=== PATIENT | female | born 1935 | race Caucasian/White ===

== ENCOUNTER 2019-10-12 15:55 | Emergency (ER) | payer MEDICARE, SELFPAY ==
[2019-10-12 16:16] VITALS: BP 178/87; PULSE 83; RESP 16; TEMP 37.2; O2SAT 97; BMI 18.7
[2019-10-12] MEDS: TET,DIPH,PERTUSS(ACELL),VAC/PF 0.5 ML SYRINGE IM (17:15)
--- NOTE | 2019-10-12 17:25 | PC.NURSE ---
Mara is a 84 year old woman that has a laceration on her left hand. She reports no pain at the site of the injury. She is not on any anticoagulants. Her hand is bleeding slowly but has guaze and pressure to control the mild (1tsp) of blood flow. She is not showing any signs of distress.
--- NOTE | 2019-10-12 18:04 | DI.RAD.S_ITS ---
PROCEDURE: XR HAND LT MIN 3V INDICATIONS: wood chipping accident TECHNIQUE: 3 views of the hand(s) acquired. COMPARISON: None. FINDINGS: Bones: No fractures or dislocations. Carpal bones are normally aligned. No suspicious bony lesions. Moderate degenerative change. Lateral deviation of the 5th digit MCP joint. Soft tissues: No suspicious soft tissue calcifications. IMPRESSION: Lateral deviation of the 5th digit MCP joint. No fracture identified. Dictated by: Ja Mann M.D. on 10/12/2019 at 18:17 Approved by: Ja Mann M.D. on 10/12/2019 at 18:19
--- NOTE | 2019-10-12 18:29 | ED.WOUNDLAC ---
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 She does not know when her last tetanus was. It occurred through gloves, and she kept chopping wood. Then she tried to butterfly at home, but elected to come to the emergency department today because she was having trouble doing by herself. She states that she has full range of motion of all her fingers. Related Data Home Medications Medication Instructions Recorded Confirmed multivitamin [Multiple Vitamins] 1 tab PO QDAY #0 02/17/16 11/21/18 [ASTRAGALUS] 2 cap PO PRN PRN #0 01/29/17 11/21/18 Josh seeds See Rx Instructions .ROUTE .COMPLEX 11/21/18 11/21/18 Citracal/Vitamin D3 630/500 IU 2 tab PO BID 11/21/18 11/21/18 Flaxseed Oil 1400 mg 1 cap PO DAILY 11/21/18 11/21/18 Turmeric 1,000 mg 1 cap PO BID 11/21/18 11/21/18 salmon oil 1,000 mg-omega-3 fatty 1 cap PO BID cap 11/21/18 11/21/18 acids 210 mg capsule vit C-vit C-uysxrb-rgox ox-lutein 1 cap PO BID cap 11/21/18 11/21/18 226 mg-200 unit-5 mg-0.8 mg capsule Previous Rx's Medication Instructions Recorded pneumoc 13-maycol conj-dip cr(PF) 0.5 0.5 ml IM X1 #1 ea 11/21/18 mL IM syringe Allergies Allergy/AdvReac Type Severity Reaction Status Date / Time No Known Drug Allergies Allergy Unverified 07/22/19 12:51 Review of Systems <SERA Mora - Last Filed: 10/12/19 20:22> Review of Systems Narrative: GENERAL: Denies chills, fatigue, malaise, fever, sweats. HEENT: Denies sinus pain, ear pain, sore throat, difficulty swallowing, dizziness. RESPIRATORY: Denies dyspnea, cough, wheezing, hemoptysis, sputum. CARDIOVASCULAR: Denies chest pain, palpitations, orthopnea, edema, GASTROINTESTINAL: Denies nausea, vomiting, abdominal pain, diarrhea, constipation, melena. : Denies dysuria, frequency, incontinence, hematuria, urinary retention. MUSCULOSKELETAL: See HPI SKIN: See HPI NEUROLOGIC: Denies weakness, headache, numbness, change in speech, confusion, seizures, incoordination. PSYCHIATRIC: No concerning psychosocial issues. 12 point review of systems is negative except for those stated above Patient History <SERA Mora - Last Filed: 10/12/19 20:22> Medical History Right hip pain (Acute) Surgical History History of tonsillectomy Family History Father Heart attack Mother No problems noted. Social History Smoking Status: Former smoker Tobacco: How many years used: 1 second hand exposure: No alcohol intake: current (a glass of wine once or twice a year) substance use type: does not use Smoking Status: Former smoker alcohol intake frequency: holidays/special occasions only Substance Use Type: does not use Exam <SERA Mora - Last Filed: 10/12/19 20:22> Narrative Exam Narrative: GENERAL: Elderly female no acute distress HEAD: Atraumatic. Normocephalic. No temporal or scalp tenderness. EYES: Pupils equal round and reactive. Extraocular motions intact. No scleral icterus. No injection or drainage. ENT: Nose without bleeding, purulent drainage or septal hematoma. . Airway patent. NECK: Trachea midline. No JVD or lymphadenopathy. Supple, nontender, no meningeal signs. CARDIOVASCULAR: Regular rate and rhythm RESPIRATORY: No cough. No increased respiratory effort. No accessory muscle use EXTREMITIES: See skin exam. Full range of motion for patient noted left hand. Able to flex and extend all fingers against resistance. Positive left radial pulse. Capillary refill less than 2 seconds all fingers left hand. Arthritis noted on left hand NEURO: AOx3. SKIN: 2 cm laceration in between left index finger and left thumb. No obvious foreign body. No obvious muscle or tendon involvement. 0.5 cm flap noted on palmar aspect of laceration. Initial Vital Signs Initial Vital Signs: Vital Signs Temperature 99.0 F 10/12/19 16:16 Pulse Rate 83 10/12/19 16:16 Respiratory Rate 16 10/12/19 16:16 Blood Pressure 178/87 H 10/12/19 16:16 Pulse Oximetry 97 10/12/19 16:16 <Manjeet Dalton DO - Last Filed: 10/13/19 05:37> Initial Vital Signs Initial Vital Signs: Vital Signs Temperature 99.0 F 10/12/19 16:16 Pulse Rate 83 10/12/19 16:16 Respiratory Rate 16 10/12/19 16:16 Blood Pressure 178/87 H 10/12/19 16:16 Pulse Oximetry 97 10/12/19 16:16 Procedures <SERA Mora - Last Filed: 10/12/19 20:22> Laceration Repair Laceration 1: Site: hand Side (If applicable): left Size (cm): 2 Description: irregular Depth: simple, single layer Local Anesthetic: lidocaine 1% and with bicarb Amount of anesthesia used (mL): 5 Pre-repair: wound explored, irrigated extensively (With saline, Iodine) and deep structures intact Skin layer closed with: nylon Size (cm): 3-0 Number of sutures: 5 Technique: simple, interrupted Scores <SERA Mora - Last Filed: 10/12/19 20:22> GCS Yahaira coma scale eye opening: Spontaneous [place]a coma scale verbal response: Orientated [place] coma scale motor response: Obey commands Yahaira coma scale total score: 15 Course <SERA Mora - Last Filed: 10/12/19 20:22> Orders Ordered: Discontinued Medications Bacitracin (Bacitracin) 1 applic TOP NOW ONE Stop: 10/12/19 19:13 Last Admin: 10/12/19 19:28 Dose: 1 applic Documented by: FABIÁN Diphtheria/Tetanus/Acell Pertussis (Adacel) 0.5 ml IM .ONCE ONE Stop: 10/12/19 17:02 Last Admin: 10/12/19 17:15 Dose: 0.5 ml Documented by: FABIÁN Lidocaine/Sodium Bicarbonate (Buffered Lidocaine 10 Ml Syr) 10 ml INJ NOW ONE Stop: 10/12/19 18:34 Last Admin: 10/12/19 19:28 Dose: 10 ml Documented by: FABIÁN Vital Signs Vital signs: Vital Signs - 8 hr 10/12/19 16:16 Temperature 99.0 F Pulse Rate 83 Respiratory Rate 16 Blood Pressure 178/87 H Pulse Oximetry 97 <Manjeet Dalton DO - Last Filed: 10/13/19 05:37> Orders Ordered: Discontinued Medications Bacitracin (Bacitracin) 1 applic TOP NOW ONE Stop: 10/12/19 19:13 Last Admin: 10/12/19 19:28 Dose: 1 applic Documented by: FABIÁN Diphtheria/Tetanus/Acell Pertussis (Adacel) 0.5 ml IM .ONCE ONE Stop: 10/12/19 17:02 Last Admin: 10/12/19 17:15 Dose: 0.5 ml Documented by: FABIÁN Lidocaine/Sodium Bicarbonate (Buffered Lidocaine 10 Ml Syr) 10 ml INJ NOW ONE Stop: 10/12/19 18:34 Last Admin: 10/12/19 19:28 Dose: 10 ml Documented by: FABIÁN Vital Signs Vital signs: Vital Signs - 8 hr 10/12/19 16:16 Temperature 99.0 F Pulse Rate 83 Respiratory Rate 16 Blood Pressure 178/87 H Pulse Oximetry 97 MDM - Wound/Laceration <SERA Mora - Last Filed: 10/12/19 20:22> Differential Diagnosis Differential diagnosis: Likely laceration Imaging Data Extremity x-ray #1: Radiologist's Impression: [address] [place] [id number] XRay Report Signed Patient: Mara Reno RMR#: [id number] : 1936Acct:[id number] Age/Sex: 84 / FDate of Service: 10/12/19 Loc: ED Accession Number: [id number] Procedure: XR hand LT min 3V Ordering Provider: Neli Izquierdo PROCEDURE: XR HAND LT MIN 3V INDICATIONS: wood chipping accident TECHNIQUE: 3 views of the hand(s) acquired. COMPARISON: None. FINDINGS: Bones: No fractures or dislocations. Carpal bones are normally aligned. No suspicious bony lesions. Moderate degenerative change. Lateral deviation of the 5th digit MCP joint. Soft tissues: No suspicious soft tissue calcifications. IMPRESSION: Lateral deviation of the 5th digit MCP joint. No fracture identified. Dictated by: Ja Mann M.D. on 10/12/2019 at 18:17 Approved by: Ja Mann M.D. on 10/12/2019 at 18:19 MDM Narrative Medical decision making narrative: The patient is an 84-year-old female who presents with his a chief complaint of a laceration to her left hand. X-ray shows no foreign bodies. Tetanus is updated. Patient had wound closed as per procedural note. Discussed at length monitoring for signs and symptoms of infection, keeping wound clean and dry, not submerging in dirty water follow-up with primary care provider. Discussed at length suture removal in 7 days. Patient has no questions or concerns upon discharge and states understanding return precautions as well as follow-up care. Discharge Plan Departure Patient Disposition: Home Clinical Impression: Laceration Discharge Date/Time: 10/12/19 19:49 Instructions: How to Care for a Laceration After Repair, DI for Laceration Repair, DI for Minor Laceration Activity Restrictions/Additional Instructions: Thank you for trusting us with your care today As discussed, please follow-up in approximately 1 week for suture removal Please monitor for signs and symptoms of infection such as redness, purulent drainage etcetera please follow-up if this occurs Today we updated your tetanus Please follow-up with primary care provider Please come back to the emergency department for any acute concerns Please do not submerge your hand into dirty water such as tub water, Ramirez water etcetera this can increase your chance of infection Prescriptions: No Action multivitamin [Multiple Vitamins] tablet 1 tab PO QDAY Qty: 0 RF: 0 [ASTRAGALUS] 2 cap PO PRN PRNQty: 0 RF: 0 PreserVision Lutein 226 mg-200 unit -5 mg-0.8 mg capsule 1 cap PO BID RF: 0 salmon oil-omega-3 fatty acids 1,000-210 mg capsule 1 cap PO BID RF: 0 Josh seeds See Rx Instructions .ROUTE .COMPLEX RF: 0 Citracal/Vitamin D3 630/500 IU 2 tab PO BID RF: 0 Flaxseed Oil 1400 mg 1 cap PO DAILY RF: 0 Turmeric 1,000 mg 1 cap PO BID RF: 0 Prevnar 13 (PF) 0.5 mL syringe 0.5 ml IM X1 Qty: 1 RF: 0 Referrals: Pratik Juarez DO [Primary Care Provider] - <Manjeet Dalton DO - Last Filed: 10/13/19 05:37> Cosign ED Attending Cosignature Attestation: I was immediately available in the department for consultation. This documentation has been reviewed and I agree with assessment and plan. Supervised by Manjeet Dalton DO
[2019-10-12] MEDS: LIDO 1%/SOD BICARB 8.4% (10ML) 10 ML SYRINGE INJ (19:28)
[2019-10-12] MEDS: BACITRACIN OINT 0.9 GM PCKT 1 APPLIC TOP (19:28)
== END 2019-10-12 19:49 | disposition home or self-care (01) ==
PROVIDERS: Emergency Provider Nurse Practitioner Family; Family Provider Physician Assistant; PCP Family Medicine
DX: S61.412A Laceration without foreign body of left hand, initial encounter (principal); W45.8XXA Other foreign body or object entering through skin, initial encounter; Z23 Encounter for immunization
CPT/HCPCS: 12001; 73130; 90471; 99283; 99284; 90715

== ENCOUNTER → 2020-06-11 09:47 | Outpatient (CLI) | payer MEDICARE, SELFPAY ==
[2020-06-11] MEDS: COVID-19 VACC #1, MRNA(MOD) 100 MCG/0.5 ML VIAL IM (09:53)
== END ==
PROVIDERS: Family Provider Physician Assistant; PCP Family Medicine; Visit Provider Internal Medicine
DX: Z23 Encounter for immunization (principal)
CPT/HCPCS: 0011A; 91301

== ENCOUNTER → 2020-07-08 11:14 | Outpatient (CLI) | payer MEDICARE, SELFPAY ==
[2020-07-08] MEDS: COVID-19 VACC #2, MRNA(MOD) 100 MCG/0.5 ML VIAL IM (11:20)
== END ==
PROVIDERS: Family Provider Physician Assistant; PCP Family Medicine; Visit Provider Internal Medicine
DX: Z23 Encounter for immunization (principal)
CPT/HCPCS: 0012A; 91301

== ENCOUNTER → 2021-04-20 07:31 | Outpatient (CLI) | payer MEDICARE, SELFPAY ==
[2021-04-20 08:10] LABS: Add Manual Diff / Slide Review NO; Basophils Absolute Auto 100 /uL (0-100); Basophils Percent Auto 1.1 % (0-2); Eosinophils Absolute Auto 100 /uL (0-450); Eosinophils Percent Auto 2.2 % (2-4); Hematocrit 41.7 % (36-46); Hemoglobin 14.1 g/dL (12.0-16.0); Lymphocytes Absolute Auto 1500 /uL (1100-4500); Lymphocytes Percent Auto 25.1 % (25-40); Mean Corpuscular HGB Conc 33.9 % (30-36); Mean Corpuscular Hemoglobin 29.7 PG (26-34); Mean Corpuscular Volume 87.6 fL (80-100); Monocytes Absolute Auto 800 /uL (0-900); Monocytes Percent Auto 13.9 % (3-14); Neutrophils Absolute Auto 3500 /uL (1500-7000); Neutrophils Percent Auto 57.7 % (50-75); Platelet Count 264 X10^3/uL (150-400); Red Blood Cell Count 4.75 X10^6/uL (4.0-5.2); Red Cell Distribution Width 13.2 % (11.6-14.8); White Blood Cell Count 6.1 X10^3/uL (4.5-11.0)
[2021-04-20 08:57] LABS: Alanine Aminotransferase 22 IU/L (<35); Albumin 4.3 g/dL (3.5-5.0); Albumin Globulin Ratio 1.5 (1.0-2.8); Alkaline Phosphatase 64 U/L (38-126); Aspartate Aminotransferase 34 IU/L (14-36); BUN Creatinine Ratio 29.3 (6-22); Bilirubin Total 0.7 mg/dL (0.2-1.3); Blood Urea Nitrogen 27 mg/dL (7-17); Calcium 9.5 mg/dL (8.4-10.2); Carbon Dioxide 36 mmol/L (22-32); Chloride 103 mmol/L (98-107); Cholesterol 226 mg/dL (140-199); Estimated Glomerular Filt Rate 57.9 mL/min (>60); Globulin 2.9 g/dL (1.7-4.1); Glucose 95 mg/dL (80-110); HDL Cholesterol 63 mg/dL (40-60); HEMOLYSIS < 15 (0-50); LDL Cholesterol Calculated 142 mg/dL (<100); Sodium 139 mmol/L (137-145); Total Protein 7.2 g/dL (6.3-8.2); Triglycerides 103 mg/dL (35-150)
[2021-04-20 09:14] LABS: Vitamin D 25 Hydroxy (D3) 63.5 ng/mL (30.0-100.0)
== END ==
PROVIDERS: Family Provider Physician Assistant; PCP Family Medicine; Referring Provider Family Medicine; Visit Provider Family Medicine
DX: E55.9 Vitamin D deficiency, unspecified (principal); E78.5 Hyperlipidemia, unspecified
CPT/HCPCS: 36415; 80053; 80061; 82306; 85025

== ENCOUNTER → 2021-05-11 09:28 | Outpatient (CLI) | payer MEDICARE, SELFPAY | PROVIDERS: Family Provider Physician Assistant; PCP Family Medicine; Referring Provider Family Medicine; Visit Provider Family Medicine | DX: I49.9 Cardiac arrhythmia, unspecified (principal) | CPT/HCPCS: 93005; 93010 ==

== ENCOUNTER → 2021-09-02 07:48 | Outpatient (CLI) | payer MEDICARE, SELFPAY ==
[2021-09-02 08:52] LABS: BUN Creatinine Ratio 30.8 (6-22); Blood Urea Nitrogen 24 mg/dL (7-17); Cholesterol 214 mg/dL (140-199); Estimated Glomerular Filt Rate > 60 mL/min (>60); HDL Cholesterol 74 mg/dL (40-60); LDL Cholesterol Calculated 124 mg/dL (<100); Triglycerides 81 mg/dL (35-150)
== END ==
PROVIDERS: Family Provider Physician Assistant; PCP Family Medicine; Referring Provider Family Medicine; Visit Provider Family Medicine
DX: E78.5 Hyperlipidemia, unspecified (principal); R94.4 Abnormal results of kidney function studies
CPT/HCPCS: 36415; 80061; 82565; 84520

== ENCOUNTER 2022-02-23 15:37 | Emergency (ER) | payer MEDICARE, SELFPAY ==
[2022-02-23 16:05] VITALS: BP 172/97; PULSE 83; RESP 18; TEMP 36.3; O2SAT 98; BMI 19.0
--- NOTE | 2022-02-23 16:09 | DI.RAD.S_ITS ---
PROCEDURE: XR HIP W PEL IF DONE RT 2V INDICATIONS: fall TECHNIQUE: AP pelvis with lateral view(s) of the right hip(s). COMPARISON: [facility], CR, [id number] W PEL IF PERFORMED, 07/30/2017, 15:09. 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 Moderate left hip DJD. No fractures or dislocations. Pelvic ring appears intact. Degenerative change in the lower lumbar spine and pubic symphysis. No suspicious bony lesions. Soft tissues: The visualized bowel gas pattern is normal. No suspicious soft tissue calcifications. IMPRESSION: No fracture demonstrated. Severe right hip DJD, progressed. Dictated by: Ja Mann M.D. on 02/23/2022 at 16:46 Approved by: Ja Mann M.D. on 02/23/2022 at 16:47
--- NOTE | 2022-02-23 18:23 | ED.FALL ---
HPI - Fall <William Mclean PA-C - Last Filed: 02/23/22 18:26> General Chief Complaint: Fall Stated Complaint: SENT BY [facility] FELL RT. HIP PAIN Time Seen by Provider: 02/23/22 17:58 Source: patient Mode of arrival: Wheelchair History of Present Illness HPI Narrative: This is an 86-year-old female presents emergency department due to right hip pain after stepping backwards and falling on her right side. She did not hit her head or lose consciousness. Not on blood thinners. Patient states that she would not hurt any other part of her body. Only concern with the pain. Denies any numbness, tingling, urinary bowel incontinence, saddle paresthesia, or any other concerning signs or symptoms. Related Data Home Medications Medication Instructions Recorded Confirmed multivitamin (Multiple Vitamins 1 tab PO QDAY ##0 02/17/16 05/31/21 tablet) [ASTRAGALUS] 2 cap PO PRN PRN ##0 01/29/17 05/31/21 Josh seeds See Rx Instructions .Route .COMPLEX 11/21/18 05/31/21 Citracal/Vitamin D3 630/500 IU 2 tab PO BID 11/21/18 05/31/21 Flaxseed Oil 1400 mg 1 cap PO DAILY 11/21/18 05/31/21 Turmeric 1,000 mg 1 cap PO BID 11/21/18 05/31/21 salmon oil 1,000 mg-omega-3 fatty 1 cap PO BID 11/21/18 05/31/21 acids 210 mg capsule vit C 226 mg-vit E 90 mg-copper 1 cap PO BID 11/21/18 05/31/21 0.8 mg-zinc oxide-lutein 5 mg capsule (PreserVision Lutein) lysine PO 11/25/19 05/31/21 acyclovir PO 04/19/21 05/31/21 Allergies Allergy/AdvReac Type Severity Reaction Status Date / Time No Known Drug Allergies Allergy Unverified 05/31/21 14:51 Review of Systems <William Mclean PA-C - Last Filed: 02/23/22 18:26> Review of Systems Narrative: GENERAL: Denies chills, fatigue, malaise, fever, sweats. HEENT: Denies sinus pain, ear pain, sore throat, difficulty swallowing, dizziness. RESPIRATORY: Denies dyspnea, cough, wheezing, hemoptysis, sputum. CARDIOVASCULAR: Denies chest pain, palpitations, orthopnea, edema, GASTROINTESTINAL: Denies nausea, vomiting, abdominal pain, diarrhea, constipation, melena. : Denies dysuria, frequency, incontinence, hematuria, urinary retention. MUSCULOSKELETAL: Reports right hip pain SKIN: Denies rash, skin lesions, or other NEUROLOGIC: Denies weakness, headache, numbness, change in speech, confusion, seizures, incoordination. PSYCHIATRIC: No concerning psychosocial issues. 12 point review of systems is negative except for those stated above Patient History <William Mclean PA-C - Last Filed: 02/23/22 18:26> Medical History (Updated 02/23/22 @ 18:26 by William Mclean PA-C) Decreased GFR Hyperlipidemia Incomplete right bundle branch block Irregular heartbeat Nocturia more than twice per night POLST (Physician Orders for Life-Sustaining Treatment) Right hip pain Seborrheic keratosis Vitamin D deficiency Surgical History History of tonsillectomy Family History Father Heart attack Mother No problems noted. Social History Smoking Status: Former smoker Tobacco: How many years used: 1 second hand exposure: No alcohol intake: current (a glass of wine once or twice a year) substance use type: does not use Smoking Status: Former smoker alcohol intake frequency: holidays/special occasions only Substance Use Type: does not use Exam <William Mclean PA-C - Last Filed: 02/23/22 18:26> Narrative Exam Narrative: GENERAL: Well-developed patient, in mild distress. HEAD: Atraumatic. Normocephalic. EYES: Pupils equal round and reactive. Extraocular motions intact. No scleral icterus. No injection or drainage. ENT: Nose without bleeding, purulent drainage. Throat without erythema, tonsillar hypertrophy or exudate. Airway patent. NECK: Trachea midline. Non tender CARDIOVASCULAR: Regular rate and rhythm without murmurs, gallops, or rubs. RESPIRATORY: Clear to auscultation. Breath sounds equal bilaterally. No wheezes, rales, or rhonchi. GASTROINTESTINAL: Abdomen soft, non-tender, nondistended. EXTREMITIES: Tenderness to palpation of the right hip. No midline lumbar tenderness. BACK: Nontender without deformity or crepitance. No flank tenderness. NEURO: AOx3. SKIN: No rash or erythema of visible areas Initial Vital Signs Initial Vital Signs: Vital Signs Temperature 97.4 F L 02/23/22 16:05 Pulse Rate 83 02/23/22 16:05 Respiratory Rate 18 02/23/22 16:05 Blood Pressure 172/97 H 02/23/22 16:05 Pulse Oximetry 98 02/23/22 16:05 Oxygen Delivery Method 02/23/22 16:05 <DO Glenny Aguilar Last Filed: 02/24/22 07:54> Initial Vital Signs Initial Vital Signs: Vital Signs Temperature 97.4 F L 02/23/22 16:05 Pulse Rate 83 02/23/22 16:05 Respiratory Rate 18 02/23/22 16:05 Blood Pressure 172/97 H 02/23/22 16:05 Pulse Oximetry 98 02/23/22 16:05 Oxygen Delivery Method 02/23/22 16:05 Course <William Mclean PA-C - Last Filed: 02/23/22 18:26> Orders Ordered: ED Orders 02/23/22 16:09 XR hip w pel if done RT 2V Stat Vital Signs Vital signs: Vital Signs - 8 hr 02/23/22 16:05 Temperature 97.4 F L Pulse Rate 83 Respiratory Rate 18 Blood Pressure 172/97 H Pulse Oximetry 98 Oxygen Delivery Method Room Air <Agnieszka Ragsdale DO - Last Filed: 02/24/22 07:54> Orders Ordered: ED Orders 02/23/22 16:09 XR hip w pel if done RT 2V Stat Vital Signs Vital signs: Vital Signs - 8 hr 02/23/22 16:05 Temperature 97.4 F L Pulse Rate 83 Respiratory Rate 18 Blood Pressure 172/97 H Pulse Oximetry 98 Oxygen Delivery Method Room Air MDM - Fall <SOPHIA Dykes Last Filed: 02/23/22 18:26> Imaging Data Extremity x-ray #1: Radiologist's Impression: [address] [id number] ReportSigned Patient: Mara Reno RMR#: [id number]: 5Acct:[id number]/Sex: 86 / FDate of Service: 02/23/22Loc: EDAccession Number: [id number] Procedure: XR hip w pel if done RT 2V Ordering Provider: Agnieszka Ragsdale D.O. PROCEDURE: XR HIP W PEL IF DONE RT 2V INDICATIONS: fall TECHNIQUE: AP pelvis with lateral view(s) of the right hip(s). COMPARISON: [facility], , [id number] W PEL IF PERFORMED, 07/30/2017, 15:09. 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 Moderate left hip DJD. No fractures or dislocations. Pelvic ring appears intact. Degenerative change in the lower lumbar spine and pubic symphysis. No suspicious bony lesions. Soft tissues: The visualized bowel gas pattern is normal. No suspicious soft tissue calcifications. IMPRESSION: No fracture demonstrated. Severe right hip DJD, progressed. Dictated by: Ja Mann M.D. on 02/23/2022 at 16:46 Approved by: Ja Mann M.D. on 02/23/2022 at 16:47 [facility] Narrative Medical decision making narrative: This is an 86-year-old female presents to the emergency department due to a right hip injury. X-rays taken which showed no acute fractures. Recommended conservative symptomatic treatment care provider if symptoms continue patient head or lose consciousness and did not need any kind of further imaging. Discharge Plan Departure Patient Disposition: Home Clinical Impression: Acute hip pain Activity Restrictions/Additional Instructions: Thank you for coming to the [facility] Emergency Department today. The x-ray shows no evidence of any kind of right hip fracture. Symptoms should improve over the next couple of days with ibuprofen and Tylenol. Please follow-up with your primary care provider if the symptoms do not improve. I hope you feel better soon. Prescriptions: No Action multivitamin [Multiple Vitamins] tablet 1 tab PO QDAY Qty: 0 [ASTRAGALUS] 2 cap PO PRN PRNQty: 0 PreserVision Lutein 226 mg-200 unit -5 mg-0.8 mg capsule 1 cap PO BID salmon oil-omega-3 fatty acids 1,000-210 mg capsule 1 cap PO BID Josh seeds See Rx Instructions .ROUTE .COMPLEX Label Comments: 1 tbsp mixed with liquid or food PO DAILY. Rx Instructions: 1 tbsp mixed with liquid or food PO DAILY. Citracal/Vitamin D3 630/500 IU 2 tab PO BID Flaxseed Oil 1400 mg 1 cap PO DAILY Turmeric 1,000 mg 1 cap PO BID lysine PO acyclovir PO Referrals: Edwin Juarez DO [Primary Care Provider] - Visit Report Forms: Patient Portal/API <Agnieszka Ragsdale DO - Last Filed: 02/24/22 07:54> Cosign ED Attending Cosignature Attestation: I was immediately available in the department for consultation. Documentation has been reviewed. I agree with assessment and plan.
[2022-02-23 18:43] VITALS: BP 125/58; PULSE 77; RESP 24; O2SAT 99
--- NOTE | 2022-02-23 18:44 | PC.NURSE ---
patient taken by wheelchair to walkin clinic to car.
== END 2022-02-23 18:44 | disposition home or self-care (01) ==
PROVIDERS: Emergency Provider Physician Assistant Medical; Family Provider Physician Assistant; PCP Family Medicine
DX: M25.551 Pain in right hip (principal); W18.30XA Fall on same level, unspecified, initial encounter
CPT/HCPCS: 73502; 99283

== ENCOUNTER → 2024-02-25 11:10 | Outpatient (CLI) | payer MEDICARE, SELFPAY ==
[2024-02-25 13:27] LABS: C-Reactive Protein Quant < 0.5 mg/dL (<1.0); Erythrocyte Sedimentation Rate 4 MM/HR (0-20)
== END ==
PROVIDERS: Family Provider Physician Assistant; PCP Family Medicine; Referring Provider Orthopaedic Surgery; Visit Provider Orthopaedic Surgery
DX: M79.641 Pain in right hand (principal); M62.541 Muscle wasting and atrophy, not elsewhere classified, right hand; M19.049 Primary osteoarthritis, unspecified hand; S83.094A Other dislocation of right patella, initial encounter
CPT/HCPCS: 36415; 85651; 86140